=== PATIENT | female | born 1995 | race Caucasian/White ===

== ENCOUNTER 2025-05-01 10:02 | Emergency (ER) | payer BC ==
[~2025-05-01] VITALS: Ht 162.5 cm; Wt 136.1 kg
[2025-05-01] MEDS ORDERED: PRENATA CHEWAB1 EACH PO (10:21)
[2025-05-01] MEDS ORDERED: ZOLOFT100 MG PO (10:21)
[2025-05-01] MEDS ORDERED: SODIUM CHLORIDE 0.9% 1,000 ML IV ONE (10:30)
[2025-05-01] MEDS ORDERED: IOHEXOL 300 MG/ML 100 ML VIAL IV ONE (10:35)
[2025-05-01 10:43] LABS: BASO # 0.0 10*3/uL (0.0-0.1); BASO % 0.3 % (0.0-1.0); EOS # 0.2 10*3/uL (0.0-0.4); EOS % 1.5 % (1.0-4.0); MEAN CELL VOLUME 86.9 fl (81.0-99.0); MEAN CORPUSCULAR HGB 27.1 pg (27.0-31.0); MEAN PLATELET VOLUME 10.9 fl (9.6-12.3); MONO # 0.5 10*3/uL (0.1-1.0); MONO % 4.5 % (3.0-9.0); NEUT # 8.8 10*3/uL (2.3-7.9); NEUT % 84.8 % (47.0-73.0); NUCLEATED RED BLOOD CELL 0.0 % (0.0-0.0); NUCLEATED RED BLOOD CELL 0.0 10*3/uL (0.0-0.0); PLATELET COUNT AUTOMATED 243 10*3/uL (130-400); RED CELL DISTRI WIDTH 13.6 % (0-14.5)
[2025-05-01 10:55] LABS: BILIRUBIN Negative (Negative); BLOOD Negative (Negative); CLARITY Clear (Clear); COLOR Yellow (Yellow); KETONE Negative (Negative); LEUKO ESTERASE Negative (Negative); NITRITE Negative (Negative); PH 6.5 (4.5-8.0); SPECIFIC GRAVITY 1.025 (1.001-1.030); UROBILINOGEN 1.0 E.U./dl (0.0-1.0)
[2025-05-01 11:07] LABS: BUN 14 mg/dl (9-23); SGPT/ALT 15 U/L (5-49)
[2025-05-01 11:16] LABS: BACTERIA 1+; EPITHELIAL CELLS 21-30; RBC 0-2 rbc/hpf (0-2)
== END 2025-05-01 12:30 | disposition home or self-care (01) ==
LOC: ED 10:02 → EDBD 10:05 → ED 12:30
PROVIDERS: Internal Medicine
DX: K80.20 Calculus of gallbladder without cholecystitis without obstruction (principal); K42.9 Umbilical hernia without obstruction or gangrene; R11.2 Nausea with vomiting, unspecified; Z79.899 Other long term (current) drug therapy; Z98.890 Other specified postprocedural states

== ENCOUNTER → 2025-05-20 | Day surgery (SDC) | payer BC ==
[~2025-05-20] VITALS: Ht 162.5 cm; Wt 134.9 kg
[~2025-05-20] MED LIST: ACETAMINOPHEN 100 ML IV ONE; Dexamethasone Sodium Phospha 4 MG/ML VIAL IV ONE; HYDROmorphONE Hydrochloride 0.5 MG/0.5 ML SYRINGE IV SCH; HYDROmorphONE Hydrochloride 0.5 MG/0.5 ML SYRINGE ONE; Lactated Ringer's Solution 1,000 ML IV ONE; Lidocaine Hydrochloride 5 ML VIAL IV ONE; Midazolam Hydrochloride 2 MG/2 ML VIAL IV ONE; ONDANSETRON HYDR4 MG PO; Ondansetron Hydrochloride 4 MG/2 ML VIAL IV ONE; PERCOCET 5-3251 EACH PO; PRENATA CHEWAB1 EACH PO; PROPOFOL 200 MG/20 ML VIAL IV ONE; ROCURONIUM BROMIDE 50 MG/5 ML SYRINGE IV ONE; SEVOFLURANE 250 ML BOT INH ONE; SUGAMMADEX SODIUM 200 MG/2 ML VIAL IV ONE; ZOLOFT100 MG PO; ceFAZolin sodium/sodium chlor 30 ML IV ONE
[2025-05-20 06:30] VITALS: BP 147/88
[2025-05-20 08:38] VITALS: BP 146/86
[2025-05-20 08:53] VITALS: BP 133/77
[2025-05-20 09:22] VITALS: BP 128/69
[2025-05-20 09:23] VITALS: BP 123/86
[2025-05-20 09:38] VITALS: BP 126/86
== END | disposition home or self-care (01) ==
LOC: SDC 05-17 10:15
PROVIDERS: ATTEND Surgery
DX: K80.10 Calculus of gallbladder with chronic cholecystitis without obstruction (principal); F41.9 Anxiety disorder, unspecified; E78.00 Pure hypercholesterolemia, unspecified; G43.909 Migraine, unspecified, not intractable, without status migrainosus; E66.01 Morbid (severe) obesity due to excess calories; Z68.43 Body mass index [BMI] 50.0-59.9, adult; Z98.890 Other specified postprocedural states; Z98.891 History of uterine scar from previous surgery